=== PATIENT | male | born 1965 | race Caucasian/White ===

== ENCOUNTER 2020-05-30 10:19 | Emergency (ER) | payer BC, OTHER ==
[2020-05-30 10:39] VITALS: BP 134/86; PULSE 85; TEMP 98.2; BMI 28.2
[2020-05-30 11:52] LABS: BASO % 1.2 % (0-2.0); EOS % 1.5 % (0-4.5); HEMATOCRIT 41.5 % (35.4-49); HEMOGLOBIN 14.1 GM/dL (11.7-16.9); LYMPH % 23.4 % (8-40); MCH 30.5 pg (25.7-33.7); MEAN CELL VOLUME 89.9 fl (80-96); MEAN PLT VOLUME 10.4 fl (7.5-11.1); MONO % 7.6 % (3.8-10.2); NEUT % 66.3 % (42.8-82.8); PLATELET COUNT 150 K/MM3 (134-434); RBC 4.61 M/mm3 (4.00-5.60); RDW 13.7 % (11.9-15.9)
[2020-05-30 11:59] LABS: EPI CELLS 2 /uL (0-25.1); HYALINE CASTS 2 /uL (0-3.1); URINE APPEARANCE CLOUDY; URINE BACTERIA >9,000 /uL (0-1359); URINE BILIRUBIN NEGATIVE (NEGATIVE); URINE COLOR ORANGE; URINE GLUCOSE (UA) NEGATIVE (NEGATIVE); URINE KETONE NEGATIVE (NEGATIVE); URINE LEUK ESTERASE 2+ (NEGATIVE); URINE NITRITE POSITIVE (NEGATIVE); URINE PROTEIN 2+ (NEGATIVE); URINE RBC 8398 /uL (0-23.9); URINE UROBILINOGEN 0.2 mg/dL (0.2-1.0); URINE WBC 208 /uL (0-25.8)
--- NOTE | 2020-05-30 12:24 | PDOC ---
History of Present Illness - General Chief Complaint: Hematuria Stated Complaint: BLOOD IN URINE Time Seen by Provider: 05/30/20 10:54 History Source: Patient Exam Limitations: No Limitations - History of Present Illness Travel History: No Initial Comments: 05/30/20 12:24 55-year-old male presents the ED with complaints of blood noted in his urine this morning. Patient denied any discomfort but also complaining of a foul smell the day prior. Patient does state mild soreness to his lower back bilaterally but denies fever, chills, nausea or dysuria. Timing/Duration: reports: changing over time Quality: reports: mild, dullness Abdominal Pain Onset Location: reports: flank Pain Radiation: reports: back Aggravating Factors: improves with: None Alleviating Factors: improves with: None Past History - Travel History Traveled outside of the country in the last 30 days: No Close contact w/someone who was outside of country & ill: No - Medical History Allergies/Adverse Reactions: Allergies Allergy/AdvReac Type Severity Reaction Status Date / Time No Known Allergies Allergy Verified 05/30/20 10:34 Home Medications: Ambulatory Orders Ciprofloxacin HCl [Cipro] 500 mg PO BID #28 tablet 05/30/20 Cardiac Disorders: Yes (murmur) COPD: No Kidney Stones: Yes - Psycho-Social/Smoking History Patient Lives Alone: No Lives with/in: spouse/SO Smoking History: Former smoker Have you smoked in the past 12 months: No If you are a former smoker, when did you quit?: 2014 Information on smoking cessation initiated: No - Substance Abuse Hx (Audit-C & DAST Scrn) How often the patient has a drink containing alcohol: Monthly or less Number of drinks the patient has on a typical day: 1 or 2 How often the patient has six or more drinks on one occasion: Never Score: In Men: 4 or > Positive; In Women: 3 or > Positive: 1 Screen Result (Pos requires Nsg. Audit-10AR): Negative In the last yr the pt used illegal drug/Rx for NonMed reason: No Score: Yes response is considered Positive: 0 Screen Result (Positive result requires Nsg. DAST-10): Negative Review of Systems - Review of Systems Able to Perform ROS?: Yes Constitutional: No: Symptoms Reported HEENTM: No: Symptoms Reported Respiratory: No: Symptoms reported Cardiac (ROS): No: Symptoms Reported ABD/GI: No: Symptoms Reported : Yes: Flank Pain, Hematuria, Other (odor) Musculoskeletal: No: Symptoms Reported Integumentary: No: Symptoms Reported Neurological: No: Symptoms reported *Physical Exam - Vital Signs Last Vital Signs Temp Pulse Resp BP Pulse Ox 98.2 F 85 18 134/86 100 05/30/20 10:35 05/30/20 10:35 05/30/20 10:35 05/30/20 10:35 05/30/20 10:35 - Physical Exam General Appearance: Yes: Nourished, Appropriately Dressed. No: Apparent Distress HEENT: negative: Pale Conjunctivae Neck: positive: Supple Respiratory/Chest: positive: Lungs Clear, Normal Breath Sounds. negative: Respiratory Distress, Accessory Muscle Use Cardiovascular: positive: Regular Rhythm, Regular Rate. negative: Murmur Gastrointestinal/Abdominal: positive: Soft. negative: Tenderness Musculoskeletal: positive: CVA Tenderness Extremity: positive: Normal Inspection Integumentary: positive: Normal Color, Warm, Moist Neurologic: positive: Motor Strength 5/5 (Ambulatory) ED Treatment Course - LABORATORY CBC & Chemistry Diagram: 05/30/20 11:40 05/30/20 11:40 - ADDITIONAL ORDERS Additional order review: Laboratory Results 05/30/20 11:30 Urine Color Evangeline Urine Appearance Cloudy Urine pH 5.0 Ur Specific Gray 1.016 Urine Protein 2+ H Urine Glucose (UA) Negative Urine Ketones Negative Urine Blood 3+ H Urine Nitrite Positive H Urine Bilirubin Negative Urine Urobilinogen 0.2 Ur Leukocyte Esterase 2+ H Urine WBC (Auto) 208 Urine RBC (Auto) 8398 Urine Casts (Auto) 2 U Epithel Cells (Auto) 2 Urine Bacteria (Auto) >9,000 05/30/20 11:40 RBC 4.61 MCV 89.9 MCHC 34.0 RDW 13.7 MPV 10.4 Neutrophils % 66.3 Lymphocytes % 23.4 Monocytes % 7.6 Eosinophils % 1.5 Basophils % 1.2 - RADIOLOGY Radiology Studies Ordered: Category Date Time Status SPIRAL- RENAL-STONE CT [CT] Stat CT Scan 05/30/20 11:26 Ordered Medical Decision Making - Medical Decision Making 05/30/20 12:16 Laboratory Tests 05/30/20 05/30/20 11:30 11:40 WBC 6.0 Hgb 14.1 Hct 41.5 Neutrophils % 66.3 Urine Nitrite Positive H Ur Leukocyte Esterase 2+ H Urine WBC (Auto) 208 Urine RBC (Auto) 8398 05/30/20 13:01 Chief complaint: Patient with hematuria this a.m. and yesterday had odor to his urine. Patient also complained of mild soreness to his lower back. Patient history of renal colic. No other complaints. Exam: Patient with bilateral CVA tenderness with no other acute findings on exam. Plan: Urine, labs, spiral CT ordered 05/30/20 13:02 CT shows left nephrolithiasis without evidence of hydronephrosis or obstructive uropathy. No evidence of acute pathology within the abdomen or pelvis. Will discharge patient home with Cipro. Urine culture sent. To check for sensitivity no previous urine culture on file Discharge - Discharge Information Problems reviewed: Yes Clinical Impression/Diagnosis: Urinary tract infection Condition: Good Disposition: HOME - Follow up/Referral - Patient Discharge Instructions Patient Printed Discharge Instructions: DI for Urinary Tract Infection (UTI) Additional Instructions: Drink at least 2 L of water on a daily basis. Take antibiotics until completed for the next 2 weeks. If symptoms do not improve and worsen please return to the ED immediately. - Post Discharge Activity
[2020-05-30 12:25] LABS: ALBUMIN 3.8 g/dl (3.4-5.0); BILIRUBIN,TOTAL 0.5 mg/dL (0.2-1); BLOOD UREA NITROGEN 11.5 mg/dL (7-18); CREATININE 0.8 mg/dL (0.55-1.3); POTASSIUM 4.1 mmol/L (3.5-5.1); TOT PROT 8.5 g/dl (6.4-8.2)
== END 2020-05-30 13:27 | disposition home or self-care (01) ==
LOC: JERFT 10:19 → JER 10:19
DX: N39.0 Urinary tract infection, site not specified (principal)
CPT/HCPCS: 36415; 74176-TC; 80053; 81003; 85025; 87086; 87186; 99284-25

== ENCOUNTER 2022-11-04 20:07 | Emergency (ER) | payer BC ==
[2022-11-04 20:21] VITALS: BP 135/72; PULSE 89; RESP 20; TEMP 97.4; BMI 30.6
== END 2022-11-04 22:41 | disposition home or self-care (01) ==
LOC: JER 20:07
DX: R19.7 Diarrhea, unspecified (principal); R11.2 Nausea with vomiting, unspecified
CPT/HCPCS: 93005; 93010; 99283-25

== ENCOUNTER 2023-03-11 04:10 | Day surgery (SDC) | payer BC ==
[2023-03-07 14:36] VITALS: BMI 30.3
[2023-03-11 10:51] VITALS: RESP 18
[2023-03-11] MEDS ORDERED: MIDAZOLAM HCL 2 MG/2 ML SINGLE DOSE VIAL ONE (13:15)
[2023-03-11] MEDS ORDERED: ONDANSETRON 4 MG/2 ML VIAL ONE (13:15)
[2023-03-11] MEDS ORDERED: ONDANSETRON 4 MG TABLET PO ONE (14:30)
[2023-03-11] MEDS ORDERED: ONDANSETRON *ODT* 4 MG TABLET ONE (14:35)
[2023-03-11 15:31] VITALS: BP 121/78; PULSE 77; TEMP 97.9
== END 2023-03-11 15:30 | disposition home or self-care (01) ==
LOC: JASU-SURG 04:10
PROVIDERS: ATTEND Urology
PROC: 0TF3XZZ Fragmentation in Right Kidney Pelvis, External Approach (ICD-10-PCS; principal; 2023-03-11 12:30)
DX: N20.0 Calculus of kidney (principal)
CPT/HCPCS: 82962; Q0162

== ENCOUNTER 2023-07-29 04:49 | Day surgery (SDC) | payer BC ==
[2023-07-26 12:07] VITALS: BMI 32.3
[2023-07-29] MEDS ORDERED: FENTANYL CITRATE/PF 50 MCG/ML VIAL ONE (12:23)
[2023-07-29] MEDS ORDERED: ONDANSETRON 4 MG/2 ML VIAL ONE ×2 (12:23→13:40)
[2023-07-29] MEDS ORDERED: MIDAZOLAM HCL 2 MG/2 ML SINGLE DOSE VIAL ONE (12:23)
[2023-07-29] MEDS ORDERED: ONDANSETRON 4 MG/2 ML VIAL IVPB ONE (15:15)
[2023-07-29 16:36] VITALS: RESP 18
[2023-07-29 16:38] VITALS: TEMP 97.9
[2023-07-29 16:43] VITALS: BP 138/72; PULSE 71
== END 2023-07-29 15:10 | disposition home or self-care (01) ==
LOC: JASU-SURG 04:49
PROVIDERS: ATTEND Urology
PROC: 0TF4XZZ Fragmentation in Left Kidney Pelvis, External Approach (ICD-10-PCS; principal; 2023-07-29 12:30)
DX: N20.0 Calculus of kidney (principal)
CPT/HCPCS: 82962

== ENCOUNTER 2023-11-18 04:20 | Day surgery (SDC) | payer BC ==
[2023-11-13 13:52] VITALS: BMI 32.3
[2023-11-18] MEDS ORDERED: MIDAZOLAM HCL 2 MG/2 ML SINGLE DOSE VIAL ONE ×2 (12:58→13:06)
[2023-11-18] MEDS ORDERED: PROPOFOL 20 ML ONE (13:06)
[2023-11-18 13:48] VITALS: TEMP 97.8
[2023-11-18] MEDS ORDERED: ONDANSETRON 4 MG/2 ML VIAL ONE (14:44)
[2023-11-18] MEDS: ONDANSETRON 4 MG/2 ML VIAL IVPB ONE (14:57)
[2023-11-18 15:04] VITALS: BP 104/67; PULSE 69; RESP 20
== END 2023-11-18 16:29 | disposition home or self-care (01) ==
LOC: JASU-SURG 04:20
PROVIDERS: ATTEND Urology
PROC: 0TF4XZZ Fragmentation in Left Kidney Pelvis, External Approach (ICD-10-PCS; principal; 2023-11-18 12:00)
DX: N20.0 Calculus of kidney (principal)
CPT/HCPCS: 82962